=== PATIENT | male | born 1960 | race Caucasian/White ===

== ENCOUNTER 2021-01-19 18:17 | Emergency (ER) | payer MEDICARE | END 2021-01-19 19:50 | disposition home or self-care (01) | LOC: ER1 18:17 | DX: R56.9 Unspecified convulsions (principal); R51.9 Headache, unspecified | CPT/HCPCS: 70450; 70551; 99284 ==

== ENCOUNTER → 2021-01-19 | Outpatient (CLI) | payer MEDICARE | LOC: EMI 15:15 | DX: R56.9 Unspecified convulsions (principal); G31.9 Degenerative disease of nervous system, unspecified; R90.82 White matter disease, unspecified | CPT/HCPCS: 70551 ==

== ENCOUNTER → 2021-01-25 | Outpatient (CLI) | payer MEDICARE | LOC: KOH-I 15:30 | DX: I61.9 Nontraumatic intracerebral hemorrhage, unspecified (principal) | CPT/HCPCS: 70450 ==

== ENCOUNTER 2022-02-12 14:33 | Inpatient (IN) | payer MEDICARE ==
[~2022-02-12] VITALS: Ht 185.4 cm; Wt 93.0 kg
[2022-02-12 15:14] LABS: HEMOGLOBIN 14.9 gm/dl (14.0-17.5); RED BLOOD COUNT 4.53 M/UL (4.20-5.50)
[2022-02-12 15:38] LABS: BUN/CREATININE RATIO 23 (0-10)
[2022-02-12 21:24] LABS: BUN/CREATININE RATIO 21 (0-10)
[2022-02-13 00:51] LABS: BUN/CREATININE RATIO 26 (0-10)
--- NOTE | 2022-02-13 01:10 | NUR ---
ATTEMT[employer] FC UNABLE TO PASS. DR KIM MADE AWARE.
[2022-02-13 05:51] LABS: BUN/CREATININE RATIO 24 (0-10)
[2022-02-13] MEDS ORDERED: LOPRESSOR 25 MG25 MG PO (10:43)
[2022-02-13] MEDS ORDERED: GABAPENTIN300 MG PO (10:44)
[2022-02-13] MEDS ORDERED: FLONASE 0.05% N16 GM (10:44)
[2022-02-13] MEDS ORDERED: MONTELUKAST SOD10 MG PO (10:45)
[2022-02-13] MEDS ORDERED: TRAZODONE HCL150 MG PO (10:45)
[2022-02-13] MEDS ORDERED: ZYLOPRIM 300 M300 MG PO (10:45)
[2022-02-13] MEDS ORDERED: PAROXETINE HCL30 MG PO (10:46)
[2022-02-13 11:36] LABS: BUN/CREATININE RATIO 18 (0-10)
[2022-02-13 14:43] LABS: BUN/CREATININE RATIO 13 (0-10)
[2022-02-13 20:59] LABS: BUN/CREATININE RATIO 13 (0-10)
[2022-02-14 04:29] LABS: HEMOGLOBIN 14.3 gm/dl (14.0-17.5); RED BLOOD COUNT 4.36 M/UL (4.20-5.50); WHITE BLOOD COUNT 10.3 K/UL (4.5-11.0)
[2022-02-14 04:56] LABS: BUN/CREATININE RATIO 14 (0-10)
[2022-02-14 12:34] LABS: BUN/CREATININE RATIO 10 (0-10)
[2022-02-14 21:06] LABS: BUN/CREATININE RATIO 12 (0-10)
[2022-02-15 03:54] LABS: RED BLOOD COUNT 4.09 M/UL (4.20-5.50); WHITE BLOOD COUNT 9.7 K/UL (4.5-11.0)
[2022-02-15 04:21] LABS: BUN/CREATININE RATIO 14 (0-10)
[2022-02-15 10:17] LABS: HBSAG SCREEN Negative (Negative); HEP B CORE AB, TOT Negative (Negative); HEP C VIRUS AB <0.1 (0.0-0.9)
[2022-02-15 12:11] LABS: ANTISTREPTOLYSIN O AB 45.2 IU/mL (0.0-200.0); COMPLEMENT C3, SERUM 125 mg/dL (82-167); COMPLEMENT C4, SERUM 25 mg/dL (12-38)
[2022-02-15 14:12] LABS: ANTI-DSDNA ANTIBODIES <1 IU/mL (0-9)
[2022-02-15 15:12] LABS: A/G RATIO 0.7 (0.7-1.7); ALBUMIN 2.1 g/dL (2.9-4.4); ALPHA-1-GLOBULIN 0.5 g/dL (0.0-0.4); BETA GLOBULIN 0.8 g/dL (0.7-1.3); GAMMA GLOBULIN 1.1 g/dL (0.4-1.8); GLOBULIN, TOTAL 3.4 g/dL (2.2-3.9); IMMUNOGLOBULIN A, QN, SERUM 312 mg/dL (90-386); IMMUNOGLOBULIN G, QN, SERUM 1099 mg/dL (603-1613); IMMUNOGLOBULIN M, QN, SERUM 78 mg/dL (20-172); M-SPIKE Not Observed g/dL (Not Observed); PROTEIN, TOTAL, SERUM 5.5 g/dL (6.0-8.5)
[2022-02-15 17:12] LABS: ATYPICAL PANCA <1:20 titer (Neg:<1:20); CYTOPLASMIC (C-ANCA) <1:20 titer (Neg:<1:20); PERINUCLEAR (P-ANCA) <1:20 titer (Neg:<1:20)
[2022-02-16 04:40] LABS: HEMOGLOBIN 12.8 gm/dl (14.0-17.5); RED BLOOD COUNT 4.04 M/UL (4.20-5.50); WHITE BLOOD COUNT 9.9 K/UL (4.5-11.0)
[2022-02-16 05:09] LABS: BUN/CREATININE RATIO 14 (0-10)
[2022-02-17 05:02] LABS: HEMOGLOBIN 11.8 gm/dl (14.0-17.5); RED BLOOD COUNT 3.67 M/UL (4.20-5.50); WHITE BLOOD COUNT 8.6 K/UL (4.5-11.0)
[2022-02-17 05:25] LABS: BUN/CREATININE RATIO 13 (0-10)
[2022-02-18 04:46] LABS: RED BLOOD COUNT 3.76 M/UL (4.20-5.50); WHITE BLOOD COUNT 8.5 K/UL (4.5-11.0)
[2022-02-18 05:29] LABS: BUN/CREATININE RATIO 16 (0-10)
[2022-02-19 05:11] LABS: HEMOGLOBIN 11.9 gm/dl (14.0-17.5); RED BLOOD COUNT 3.74 M/UL (4.20-5.50)
[2022-02-19 05:22] LABS: WHITE BLOOD COUNT 10.7 K/UL (4.5-11.0)
[2022-02-19 05:49] LABS: BUN/CREATININE RATIO 11 (0-10)
[2022-02-20 05:14] LABS: HEMOGLOBIN 11.7 gm/dl (14.0-17.5); RED BLOOD COUNT 3.76 M/UL (4.20-5.50); WHITE BLOOD COUNT 8.8 K/UL (4.5-11.0)
[2022-02-20 05:45] LABS: BUN/CREATININE RATIO 13 (0-10)
[2022-02-21 05:36] LABS: RED BLOOD COUNT 3.49 M/UL (4.20-5.50); WHITE BLOOD COUNT 9.2 K/UL (4.5-11.0)
[2022-02-21 06:53] LABS: BUN/CREATININE RATIO 17 (0-10)
[2022-02-22 06:21] LABS: HEMOGLOBIN 11.1 gm/dl (14.0-17.5); RED BLOOD COUNT 3.57 M/UL (4.20-5.50); WHITE BLOOD COUNT 9.9 K/UL (4.5-11.0)
[2022-02-22 06:55] LABS: BUN/CREATININE RATIO 12 (0-10)
[2022-02-23 03:46] LABS: HEMOGLOBIN 12.4 gm/dl (14.0-17.5); WHITE BLOOD COUNT 8.4 K/UL (4.5-11.0)
[2022-02-23 03:48] LABS: RED BLOOD COUNT 4.01 M/UL (4.20-5.50)
[2022-02-23 04:11] LABS: BUN/CREATININE RATIO 20 (0-10)
[2022-02-24 03:28] LABS: HEMOGLOBIN 10.5 gm/dl (14.0-17.5); WHITE BLOOD COUNT 10.3 K/UL (4.5-11.0)
[2022-02-24 03:32] LABS: RED BLOOD COUNT 3.41 M/UL (4.20-5.50)
[2022-02-24 03:50] LABS: BUN/CREATININE RATIO 16 (0-10)
[2022-02-25 03:06] LABS: HEMOGLOBIN 9.7 gm/dl (14.0-17.5); RED BLOOD COUNT 3.14 M/UL (4.20-5.50)
[2022-02-25 03:43] LABS: BUN/CREATININE RATIO 14 (0-10)
--- NOTE | 2022-02-26 02:30 | NUR ---
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 PT VERY CONFUSED, WILL NOT STAY IN BED, RIPPING OUT MULTIPLE IVS, ETC. NOTIFIED HER OF NEED FOR PT TO BE CLOSER TO RN STATION FOR FEAR OF PT FALLING. OBTAINED PERMISSION TO MOVE THE PT TO ROOM 4109 ONCE THEY HAD AN RN TO TAKE THAT TEAM.
--- NOTE | 2022-02-26 02:33 | NUR ---
NOTIFIED BY TELE MEJIA THAT PATIENT WAS NONCOMPLIANT WITH TELE, NOTIFIED DR EDGAR AND HE GAVE A VERBAL ORDER TO DC TELE
[2022-02-26 07:00] LABS: HEMOGLOBIN 9.7 gm/dl (14.0-17.5); RED BLOOD COUNT 3.18 M/UL (4.20-5.50); WHITE BLOOD COUNT 9.3 K/UL (4.5-11.0)
[2022-02-26 07:40] LABS: BUN/CREATININE RATIO 13 (0-10)
[2022-02-27 03:02] LABS: HEMOGLOBIN 9.4 gm/dl (14.0-17.5); RED BLOOD COUNT 3.06 M/UL (4.20-5.50); WHITE BLOOD COUNT 9.8 K/UL (4.5-11.0)
[2022-02-27 03:41] LABS: BUN/CREATININE RATIO 15 (0-10)
[2022-02-27] MEDS ORDERED: LANTUS INS100 UTS/M1 SQ (13:10)
[2022-02-27] MEDS ORDERED: ATORVASTATIN CA20 MG PO (13:10)
[2022-02-27] MEDS ORDERED: ASPIRIN 325MG325 MG PO (13:10)
[2022-02-27] MEDS ORDERED: VITAMIN B-1100 M1 PO (13:10)
[2022-02-27] MEDS ORDERED: TAB-A-VITE TA400 MC1 PO (13:10)
[2022-02-27] MEDS ORDERED: LOPRESSOR 25 MG25 MG PO (13:10)
[2022-02-27] MEDS ORDERED: INVANZ 1 GM VIAL1 GM IV (13:17)
[2022-02-27] MEDS ORDERED: QUETIAPINE FUMA25 MG PO (13:17)
[2022-02-27] MEDS ORDERED: GABAPENTIN300 MG PO (13:17)
[2022-02-27] MEDS ORDERED: ASPIRIN EC81 MG PO (14:01)
[2022-02-27] MEDS ORDERED: LANTUS100 UNIT/1 SQ (14:01)
[2022-02-27] MEDS ORDERED: HUMALOG 10100 UNITS/ SC (14:01)
[2022-02-27] MEDS ORDERED: FLOMAX 0.4 MG0.4 MG PO (14:01)
--- NOTE | 2022-02-27 15:24 | NUR ---
SPOKE WITH PATIENTS AT THIS TIME AND INFORMED HER THAT PATIENT WAS BEING TRANSFERED.
--- NOTE | 2022-02-27 15:46 | NUR ---
REPORT CALLED TO ANTONINA CARABALLO AT [facility] AT THIS TIME
--- NOTE | 2022-02-27 18:00 | NUR ---
[facility] CALLED AT THIS TIME AND STATED THAT THEY MAY NOT BE ABLE TO TRANSPORT THE PATIENT UNTIL THE MORNING. [facility] STATES THAT THEY HAVE 6 OTHER TRANSFERS AND THEY DO NOT HAVE THE STAFF HE STATED THAT HE WOULD CALL OTHER [facility] TO TRANSPORT THE PATIENT BUT IF THEY DECLINED IT WOULD BE IN THE MORNING. 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
[2022-02-28 06:09] LABS: HEMOGLOBIN 8.4 gm/dl (14.0-17.5); WHITE BLOOD COUNT 10.2 K/UL (4.5-11.0)
[2022-02-28 06:13] LABS: RED BLOOD COUNT 2.74 M/UL (4.20-5.50)
[2022-02-28 06:34] LABS: BUN/CREATININE RATIO 16 (0-10)
--- NOTE | 2022-02-28 09:02 | NUR ---
[facility] CALLED AT THIS TIME AND STATED THAT THE PATIENT HAS LOST HIS PRE CERT FOR A ROOM AND IT WILL HAVE TO BE REDONE. EMS NOTIIFED NOT TO SEND A TRUCK AT THIS TIME
[2022-03-01 04:32] LABS: HEMOGLOBIN 8.2 gm/dl (14.0-17.5); RED BLOOD COUNT 2.73 M/UL (4.20-5.50); WHITE BLOOD COUNT 12.3 K/UL (4.5-11.0)
[2022-03-01 05:15] LABS: BUN/CREATININE RATIO 13 (0-10)
[2022-03-01 11:30] LABS: HEMOGLOBIN 8.6 gm/dl (14.0-17.5); RED BLOOD COUNT 2.83 M/UL (4.20-5.50); WHITE BLOOD COUNT 12.1 K/UL (4.5-11.0)
[2022-03-01] MEDS ORDERED: MEROPENEM1 GM IV (11:40)
[2022-03-01] MEDS ORDERED: ZOSYN 4.5 GM A4.5 GM INJ (12:30)
== END 2022-03-01 20:29 | DRG 896 ==
LOC: ER1 14:33 → MED SURG 4 20:16 → CCU 20:16 → CDU 20:16 → CCU 02-13 00:04 → MED SURG 4 02-21 20:15
PROVIDERS: Emergency Medicine; Internal Medicine; Internal Medicine Nephrology; ADMIT Internal Medicine
PROC: HZ2ZZZZ Detoxification Services for Substance Abuse Treatment (ICD-10-PCS; principal; 2022-02-12)
DX: F10.231 Alcohol dependence with withdrawal delirium (principal); E11.10 Type 2 diabetes mellitus with ketoacidosis without coma; G92.8 Other toxic encephalopathy; I21.4 Non-ST elevation (NSTEMI) myocardial infarction; J69.0 Pneumonitis due to inhalation of food and vomit; E44.0 Moderate protein-calorie malnutrition; E51.2 Wernicke's encephalopathy; N13.6 Pyonephrosis; I25.10 Atherosclerotic heart disease of native coronary artery without angina pectoris; F41.9 Anxiety disorder, unspecified; R74.01 Elevation of levels of liver transaminase levels; Z66 Do not resuscitate; G40.909 Epilepsy, unspecified, not intractable, without status epilepticus; K75.9 Inflammatory liver disease, unspecified; H54.8 Legal blindness, as defined in USA; R00.0 Tachycardia, unspecified; E87.6 Hypokalemia; R63.1 Polydipsia; Z20.822 Contact with and (suspected) exposure to COVID-19; I10 Essential (primary) hypertension; E83.39 Other disorders of phosphorus metabolism; R44.9 Unspecified symptoms and signs involving general sensations and perceptions; M54.9 Dorsalgia, unspecified; G89.29 Other chronic pain; R45.1 Restlessness and agitation; Z86.73 Personal history of transient ischemic attack (TIA), and cerebral infarction without residual deficits; Z98.890 Other specified postprocedural states; Z82.0 Family history of epilepsy and other diseases of the nervous system; Z79.4 Long term (current) use of insulin; Z90.49 Acquired absence of other specified parts of digestive tract; Z68.27 Body mass index [BMI] 27.0-27.9, adult; Z91.14 Patient's other noncompliance with medication regimen; Z79.82 Long term (current) use of aspirin
CPT/HCPCS: 36415; 36600; 70450; 70551; 71045; 71046; 80048; 80053; 80061; 80076; 80202; 81001; 82009; 82436; 82533; 82550; 82553; 82570; 82784; 82803; 82962; 83036; 83520; 83605; 83735; 83883; 83935; 84100; 84132; 84133; 84155; 84156; 84165; 84300; 84439; 84443; 84484; 85025; 85027; 85610; 85730; 86038; 86060; 86160; 86162; 86225; 86256; 86334; 86704; 86706; 86708; 86803; 87040; 87081; 87086; 87340; 87880; 92526; 92610; 93005; 94760; 96374; 96375; 97110; 97116; 97116-GP-CQ; 97162; 97166; 97530; 97530-GP-CQ; 97535; 99285; J0692; J0696; J1650; J2060; J2185; J2270; J2405; J2543; J2597; J3370; J3411; J3475; J3480; J7030; J7040; J7050; J7070; Q9967; U0002